=== PATIENT | male | born 1985 | race Caucasian/White ===

== ENCOUNTER 2016-07-26 05:50 | Emergency (ER) | payer MEDICAID ==
[2016-07-26 06:02] VITALS: BP 125/77
== END 2016-07-26 09:09 | disposition home or self-care (01) ==
LOC: ER 05:56
DX: S82.031A Displaced transverse fracture of right patella, initial encounter for closed fracture (principal); W50.0XXA Accidental hit or strike by another person, initial encounter; Y93.01 Activity, walking, marching and hiking; Y99.9 Unspecified external cause status; Y92.89 Other specified places as the place of occurrence of the external cause
CPT/HCPCS: 29505; 73562

== ENCOUNTER 2016-08-27 17:04 | Emergency (ER) | payer MEDICAID ==
[~2016-08-27] VITALS: Ht 170.2 cm; Wt 88.9 kg
[2016-08-27 18:40] VITALS: BP 114/81
== END 2016-08-27 19:35 | disposition left against medical advice (07) ==
LOC: EDBD 17:04 → ER 17:21
DX: S89.91XA Unspecified injury of right lower leg, initial encounter (principal); W01.0XXA Fall on same level from slipping, tripping and stumbling without subsequent striking against object, initial encounter; Y93.9 Activity, unspecified; Y99.8 Other external cause status; Y92.89 Other specified places as the place of occurrence of the external cause; M25.561 Pain in right knee
CPT/HCPCS: 73562

== ENCOUNTER 2017-11-23 07:10 | Emergency (ER) | payer MEDICAID ==
[~2017-11-23] VITALS: Ht 170.2 cm; Wt 90.7 kg
[2017-11-23 07:15] VITALS: BP 143/92
== END 2017-11-23 13:29 | disposition left against medical advice (07) ==
LOC: ER 07:10
DX: L02.214 Cutaneous abscess of groin (principal)

== ENCOUNTER 2020-12-12 13:50 | Emergency (ER) | payer MEDICAID ==
[~2020-12-12] VITALS: Ht 170.2 cm; Wt 95.3 kg
[2020-12-12] MEDS ORDERED: IBUPROFEN 800 MG TAB PO ONE (14:00)
[2020-12-12 17:22] LABS: Basophils # (auto) 0 10 ^3/uL (0-0.2); Basophils % (auto) 0.6 % (0.0-2.0); Eosinophils # (auto) 0 10 ^3/uL (0-0.8); Eosinophils % (auto) 0.2 % (0.0-7.0); Hematocrit 41.5 % (41.0-53.0); Hemoglobin 15.1 g/dL (13.5-17.5); Lymphocytes # (auto) 1.3 10 ^3/uL (0.4-5.4); Lymphocytes % (auto) 25.4 % (10.0-50.0); Mean Corpuscular Hemoglobin 33.8 pg (28.0-32.0); Mean Corpuscular Hgb Conc. 36.4 g/dL (32.0-36.0); Mean Corpuscular Volume 92.9 fL (80.0-100.0); Monocytes # (auto) 0.5 10 ^3/uL (0-1.3); Monocytes % (auto) 9.5 % (0.0-12.0); Neutrophils # (auto) 3.3 10 ^3/uL (1.6-8.6); Neutrophils % (auto) 64.3 % (37.0-80.0); Nucleated Red Blood Cells % 0.1 %; Platelet Count (auto) 114 10^3/uL (140-450); Red Blood Cells 4.47 10^6/uL (4.5-5.90); Red Cell Distribution Width 11.9 % (11.8-14.3); White Blood Cell 5.1 10^3/uL (4.4-10.8)
[2020-12-12 17:39] LABS: Albumin 4.2 g/dL (3.4-5.0); Calcium 8.7 mg/dL (8.5-10.1); Potassium 3.5 mmol/L (3.5-5.1)
[2020-12-12 17:54] LABS: BUN/Creatinine Ratio 8.2; Bilirubin, Total 0.7 mg/dL (0.2-1.0); Total Protein 8.2 g/dL (6.4-8.2)
[2020-12-12 18:05] LABS: Urine Amorphous Crystal FEW /hpf (None Seen); Urine Bacteria NONE SEEN /hpf (None Seen); Urine Blood Negative /uL (Negative); Urine Specific Gravity 1.037 (1.001-1.035); Urine WBC 23 /hpf (0 - 3); Urine WBC Clumps PRESENT /hpf (None Seen)
[2020-12-12] MEDS ORDERED: ACETAMINOPHEN 325 MG TAB PO ONE (21:15)
[2020-12-12 21:59] VITALS: BP 123/76
== END 2020-12-13 05:35 | disposition home or self-care (01) ==
LOC: ER 13:50
DX: B34.9 Viral infection, unspecified (principal)
CPT/HCPCS: 36415; 74176; 80053; 81001; 85025; 85049

== ENCOUNTER → 2024-02-09 | Emergency (ER) | payer MEDICAID ==
[~2024-02-09] VITALS: Ht 167.6 cm; Wt 92.2 kg
[2024-02-09 12:32] VITALS: BP 148/92; PULSE 110; RESP 17; O2SAT 96
== END | disposition left against medical advice (07) ==
LOC: ER 12:49
DX: S81.011A Laceration without foreign body, right knee, initial encounter (principal); T21.12XA Burn of first degree of abdominal wall, initial encounter; Z53.21 Procedure and treatment not carried out due to patient leaving prior to being seen by health care provider; X08.8XXA Exposure to other specified smoke, fire and flames, initial encounter; Y93.89 Activity, other specified; Y92.89 Other specified places as the place of occurrence of the external cause; Y99.8 Other external cause status